=== PATIENT | female | born 1985 ===

== ENCOUNTER 2022-07-28 08:02 | Day surgery (SDC) | payer OTHER | END 2022-07-28 11:35 | disposition home or self-care (01) | LOC: AMB-ENDOS 08:02 → CIR.AMB 13:45 | PROVIDERS: ATTEND Surgery | DX: K29.60 Other gastritis without bleeding (principal); K21.9 Gastro-esophageal reflux disease without esophagitis; Z20.822 Contact with and (suspected) exposure to COVID-19; K64.4 Residual hemorrhoidal skin tags; E66.8 Other obesity; I10 Essential (primary) hypertension ==